=== PATIENT | male | born 1975 | race African-American/Black ===

== ENCOUNTER 2017-04-04 08:49 | Day surgery (SDC) | payer MEDICARE ==
[2017-04-03 09:35] VITALS: BMI 22.6
[~2017-04-04 08:49] MED LIST: Cyclopentolate 1% Opth Drop 2 ML BOT FS SCH; EPINEPHrine 0.3 MG, Dextrose 50% 3 ML in Ophthalmic Irrigation Solution 500 ML FS SCH; Phenylephrine HCl 2.5% Ophth Soln 5 ML BOT FS SCH
[2017-04-04] MEDS ORDERED: Cyclopentolate 1% Opth Drop 2 ML BOT ONE (09:08)
[2017-04-04] MEDS ORDERED: Phenylephrine HCl 2.5% Ophth Soln 5 ML BOT ONE (09:08)
[2017-04-04] MEDS ORDERED: Midazolam HCl 2 mg/2 ml Vial ONE ×2 (09:47→10:16)
[2017-04-04] MEDS ORDERED: Ondansetron HCl/PF 4 MG/2 ML Vial ONE ×2 (10:16→10:39)
[2017-04-04] MEDS ORDERED: Fentanyl 100 MCG/2 ML VIAL ONE (10:16)
[2017-04-04] MEDS ORDERED: Diprivan 20 ML ONE (10:17)
[2017-04-04] MEDS ORDERED: Dexamethasone 20 MG/5 ML VIAL ONE (10:39)
[2017-04-04] MEDS ORDERED: Propofol 200 MG/20 ML VIAL ONE (10:39)
[2017-04-04] MEDS ORDERED: Lidocaine 1% PF 5 ML VIAL ONE (10:39)
--- NOTE | 2017-04-04 14:17 | OP ---
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 PROCEDURE: Right eye. Panretinal photocoagulation via indirect laser, left eye. Pars plana vitrec susanne, membrane peel, panretinal photocoagulation. SURGEON: Samuel Armstrong M.D. ANESTHESIA: General endotracheal. COMPLICATIONS: None. PROCEDURE IN DETAIL: The patient was identified in the preoperative holding area. Appropriate info rmed consent for the planned surgical procedure was obtained for surgery on both eyes. The patient was taken to the operative suite where general endotracheal anesthesia was initiated. Retrobulbar b lock was placed in the left eye. The patient was prepped and draped in the usual sterile manner for ophthalmic surgery on the left eye. Lid speculum was placed in the left eye. Trocars were placed supratemporally, inferotemporally, and supranasally. Infusion line was placed inferotemporally. Li ght pipe and vitreous cutter were inserted into the eye. Core of vitrectomy was performed. Vitreou s hemorrhage was removed. An area of tractional elevation was noted superior to the nerve. Vitreou s was removed from the area of tractional elevation and the proliferation was trimmed flat to the re tinal surface. Ledezma retinal photocoagulation was placed into all non-macular areas of the retina. N o further hemorrhaging was noted. Trocars were removed and eye was noted to retain pressure well. Retrobulbar Kenalog and subconjunctival Ancef were placed. Antibiotic ointment was placed, and the eye was patched and shielded. Attention was turned to the right eye using indirect laser technique. Photocoagulation was placed into all nonmacular and nonoccluded areas of the retina. Significant areas of vitreous hemorrhage were identified in the right eye, which precluded treatment of the post erior pole. A total of 1022 spots were able to be applied into the retina of the right eye. The pa tient was awakened and taken to the postoperative recovery unit in good condition having suffered no immediate perioperative complications. DISCHARGE INSTRUCTIONS: The patient was instructed to keep patch and shield on, avoid lifting or be nding, and follow up in the morning with Dr. Armstrong.
== END 2017-04-04 13:25 | disposition home or self-care (01) ==
LOC: SDC 08:49
PROVIDERS: ATTEND Ophthalmology Retina Specialist
PROC: 08T53ZZ Resection of Left Vitreous, Percutaneous Approach (ICD-10-PCS; principal; 2017-04-04)
PROC: 08QF3ZZ Repair Left Retina, Percutaneous Approach (ICD-10-PCS; 2017-04-04)
PROC: 085E3ZZ Destruction of Right Retina, Percutaneous Approach (ICD-10-PCS; 2017-04-04)
DX: E11.3593 Type 2 diabetes mellitus with proliferative diabetic retinopathy without macular edema, bilateral (principal); H43.13 Vitreous hemorrhage, bilateral; F17.200 Nicotine dependence, unspecified, uncomplicated; Z79.84 Long term (current) use of oral hypoglycemic drugs; Z79.899 Other long term (current) drug therapy; Z87.820 Personal history of traumatic brain injury
CPT/HCPCS: J0171; J1100; J2001; J2250; J2405; J2704; J3010

== ENCOUNTER 2018-10-06 10:39 | Outpatient (CLI) | payer MEDICARE ==
--- NOTE | 2018-10-06 11:09 | RAD ---
FXR Ankle Lt 3 View STANDARD History: [Osteoarthritis and edema] Comparison: None. Findings: Mild periosteal thickening along the lateral margin of the distal tibia at the level of the syndesmosis, likely chronic in nature. Mild vascular calcifications. Mild bimalleolar soft tissue sw elling. No acute fracture or malalignment. Impression: Chronic findings. No acute fracture or malalignment.
--- NOTE | 2018-10-06 11:28 | RAD ---
FLeft foot 3 views HISTORY: Left foot pain. Injury. Osteoarthritis and edema. FINDINGS: Prominent soft tissue swelling about the toe and distal metatarsal. Joint space narrowing m ost pronounced at the interphalangeal joint of the great toe. Mild to moderate osteophytosis. Moderat e osteoarthritic changes at the first tarsometatarsal joint. Cortical remodeling and subtle erosions involve the base articular surface of the distal phalanx and the medial base articular surface of the proximal phalanx. Cortical remodeling of the articular surface of the first metatarsal head with sub tle erosion along the medial margin. No soft tissue gas. Lisfranc joint alignment is anatomic. Pes planus on the lateral view. IMPRESSION: Prominent soft tissue swelling about the big toe without soft tissue gas or aggressive os seous destruction suggestive of direct osseous involvement. Prominent osteoarthritic changes, most pronounced at the great toe, including some articular surface erosions, as detailed above.
== END 2018-10-06 10:40 | disposition home or self-care (01) ==
LOC: BICRAD 10:39
PROVIDERS: ATTEND Podiatrist
DX: M19.072 Primary osteoarthritis, left ankle and foot (principal); M79.89 Other specified soft tissue disorders
CPT/HCPCS: 36415; 80048; 84550; 85025; 85652

== ENCOUNTER 2019-01-08 10:22 | Day surgery (SDC) | payer MEDICARE ==
[2019-01-07 08:26] VITALS: BMI 28.5
[~2019-01-08 10:22] MED LIST changes: -Cyclopentolate 1% Opth Drop 2 ML BOT FS SCH; -EPINEPHrine 0.3 MG, Dextrose 50% 3 ML in Ophthalmic Irrigation Solution 500 ML FS SCH; +EPINEPHrine 0.3 MG, Dextrose 50% 3 ML in Ophthalmic Irrigation Solution 500 ML IVP SCH; +Fentanyl 100 MCG/2 ML VIAL ONE; +Midazolam HCl 2 mg/2 ml Vial ONE; -Phenylephrine HCl 2.5% Ophth Soln 5 ML BOT FS SCH
[2019-01-08] MEDS ORDERED: Cyclopentolate 1% Opth Drop 2 ML BOT ONE (11:22)
[2019-01-08] MEDS ORDERED: Phenylephrine 2.5% Ophth Soln 5 ML BOT ONE (11:22)
[2019-01-08] MEDS ORDERED: Midazolam HCl 2 mg/2 ml Vial ONE (11:23)
[2019-01-08] MEDS ORDERED: Famotidine/PF 20 mg/2ml Vial ONE (12:37)
--- NOTE | 2019-01-08 22:41 | OP ---
DATE OF PROCEDURE: 01/08/2019 PREOPERATIVE DIAGNOSES: 1. Vitreous hemorrhage, right eye. 2. Diabetic macular edema, left eye. PROCEDURE PERFORMED: Pars plana vitrectomy, panretinal photocoagulation, membrane peel, right eye, Ozurdex placement, left eye. ANESTHESIA: General endotracheal anesthesia. PROCEDURE IN DETAIL: The patient was identified in the preoperative holding area. Appropriate informed consent for the planned surgical procedure on the right eye had been obtained. The patient was transported to the operative suite. Appropriate cardiopulmonary monitoring was established. General endotracheal anesthesia was initiated. The patient was prepped and draped in usual sterile manner for ophthalmic surgery in both eyes and Ozurdex implant was placed in the left eye. A 25-gauge trocar was placed in conjunctiva and sclera superotemporally, inferotemporally, and supranasally in the right eye and a core vitrectomy was performed. Posterior hyaloid face was noted to be elevated. There was traction and proliferation extensively nasally and along the superotemporal and inferotemporal arcades. These traction areas were released and the vitreous was removed. Panretinal photocoagulation was placed into all non macular areas of the retina. Trocars were removed and the eye was noted to retain pressure well. Retrobulbar Kenalog and subconjunctival Ancef were placed. Antibiotic ointment was placed. Eye was patched and shield. The patient was taken to postoperative recovery unit in good condition, having suffered no immediate perioperative complications. The patient was advised to keep the patch on the right eye and followup appointment with Dr. Armstrong. Job ID: [id number]
== END 2019-01-08 15:00 | disposition home or self-care (01) ==
LOC: SDC 10:22
PROVIDERS: ATTEND Ophthalmology Retina Specialist
PROC: 08B43ZZ Excision of Right Vitreous, Percutaneous Approach (ICD-10-PCS; principal; 2019-01-08)
PROC: 08NE3ZZ Release Right Retina, Percutaneous Approach (ICD-10-PCS; 2019-01-08)
DX: H43.11 Vitreous hemorrhage, right eye (principal); E11.311 Type 2 diabetes mellitus with unspecified diabetic retinopathy with macular edema
CPT/HCPCS: 36416; J0171; J2250; J3010; S0028

== ENCOUNTER 2023-05-12 11:22 | Emergency (ER) | payer MEDICARE, OTHER ==
[2023-05-12 12:31] LABS: #Eosinphils 0.3 thou/uL (0.0-0.7); #Monocytes 0.4 thou/uL (0.11-0.59); %Basophils 0.6 % (0.0-1.0); %Eosinophils 4.8 % (0.0-10.0); %Monocytes 8.1 % (0.0-10.0); %Neutrophils 54.9 % (42.0-75.0); Hematocrit 47.3 % (42.0-52.0); Hemoglobin 15.2 g/dL (14.0-18.0); Mean Corpuscular HGB CONC 32.1 g/dL (32.0-36.0); Mean Corpuscular Hemoglobin 28.4 pg (27.0-31.0); Mean Corpuscular Volume 88.2 fl (78.0-98.0); Mean Platelet Volume 11.6 fL (7.4-10.4); Platelet Count 159 10x3/uL (130-400); RBC Distribution Width 13.5 % (11.5-14.5); Red Blood Cell (RBC) Count 5.36 mill/uL (4.70-6.10); White Blood Cell (WBC) Count 5.4 10x3/uL (4.8-10.8)
[2023-05-12 12:46] LABS: ALT (SGPT) 18 U/L (8-55); AST (SGOT) 22 U/L (5-34); Albumin 5.2 g/dL (3.5-5.0); Alkaline Phosphatase 72 U/L (40-110); Anion Gap 17 mmol/L (10-20); BUN (Urea Nitrogen) 20 mg/dL (8.9-20.6); Bilirubin, Total 0.4 mg/dL (0.2-1.2); Calc. Creatinine Clearance 0 mL/min (70-130); Calcium 9.3 mg/dL (7.8-10.44); Carbon Dioxide 26 mmol/L (22-29); Chloride 99 mmol/L (98-107); Estimated GFR 74; Globulin 3.1 g/dL (2.4-3.5); Glucose 68 mg/dL (70-105); Potassium 3.6 mmol/L (3.5-5.1); Protein, Total 8.3 g/dL (6.0-8.3); Sodium 138 mmol/L (136-145)
[2023-05-12 13:27] LABS: Bilirubin Negative (Negative); Blood, Urine Negative (Negative); Clarity Clear (Clear); Glucose, Urine (Dipstick) Normal (Negative); Ketone, Urine Negative (Negative); Leukocyte Negative Leu/uL (Negative); Nitrite Negative (Negative); Protein, Urine (Dipstick) 50 mg/dL (Neg-Trace); Specific Gravity, Urine 1.019 (1.002-1.036); Urobilinogen Normal mg/dL (Less than 2)
[2023-05-12 13:34] LABS: CAUTI Indications for Culture Alt mental st,lethar; RBC/HPF 0-3 HPF (0-3); WBC/HPF 0-3 HPF (0-3)
[2023-05-12 13:35] LABS: Bacteria/HPF None Seen HPF (None Seen); Squamous Epithelial 0-3 HPF (0-3); Urine Culture Reflex No No
== END 2023-05-12 16:44 | disposition home or self-care (01) ==
LOC: ERS 11:22
DX: E11.649 Type 2 diabetes mellitus with hypoglycemia without coma (principal)
CPT/HCPCS: 36416; 80053; 81001; 85025; 93005; 96360